=== PATIENT | male | born 1960 ===

== ENCOUNTER 2017-11-16 20:04 | Emergency (ER) | payer OTHER, BC ==
[2017-11-16 20:07] VITALS: BP 140/80; PULSE 60; RESP 16; TEMP 98.8; O2SAT 99
--- NOTE | 2017-11-16 20:20 | ED PDOC ---
Upper Extremity Pain/Injury Time Seen by Provider: 11/16/17 20:09 Chief Complaint (Nursing): Upper Extremity Problem/Injury Chief Complaint (Provider): Upper Extremity Problem/Injury History Per: Patient History/Exam Limitations: no limitations Onset/Duration Of Symptoms: Mins Current Symptoms Are (Timing): Still Present Additional Complaint(s): 57 y/o male brought in by [employer] for evaluation of right should pain s/p trip and fall. Patient states he was at work today and using a buffering machine when he tripped and fell down a ramp, landing on his right elbow and jamming his right shoulder. Patient is now complaining of right anterior shoulder pain and decreased ROM. Patient denies taking medications prior to arrival and does not want any in ER. In addition, patient states of a PSHx of a coronary stent and is currently taking Plavix. PMD: In [place], [place] Past Medical History Reviewed: Historical Data, Nursing Documentation, Vital Signs Vital Signs: Last Vital Signs Temp 98.8 F 11/16/17 20:05 Pulse 60 11/16/17 20:05 Resp 16 11/16/17 20:05 BP 140/80 11/16/17 20:05 Pulse Ox 99 11/16/17 20:05 - Surgical History Surgical History: Coronary Stent - Family History Family History: States: No Known Family Hx - Allergies Allergies/Adverse Reactions: Allergies Allergy/AdvReac Type Severity Reaction Status Date / Time No Known Allergies Allergy Verified 11/16/17 20:05 Review of Systems ROS Statement: Except As Marked, All Systems Reviewed And Found Negative Musculoskeletal: Positive for: Shoulder Pain (right shoulder pain and decreased ROM ) Physical Exam - Reviewed Nursing Documentation Reviewed: Yes Vital Signs Reviewed: Yes - Physical Exam Appears: Positive for: No Acute Distress Head Exam: Positive for: ATRAUMATIC Skin: Positive for: Normal Color, Warm Eye Exam: Positive for: Normal appearance Neck: Positive for: Normal Cardiovascular/Chest: Negative for: Bradycardia, Tachycardia Respiratory: Negative for: Respiratory Distress Extremity: Positive for: Normal ROM (Full ROM of the right wrist and elbow. Decreased ROM with abduction of right shoulder. ), Tenderness (to anterior head of the humerous. Clavicle and scapula are non-tender. ), Other (Abrasion to the right elbow). Negative for: Deformity Neurologic/Psych: Positive for: Alert, Oriented. Negative for: Motor/Sensory Deficits - ECG O2 Sat by Pulse Oximetry: 99 (RA) Pulse Ox Interpretation: Normal Medical Decision Making Medical Decision Making: No acture fracture or dislocation seen on XR of the right shoulder. Antibiotic ointment and dressing on wound. 5 - Pt requesting pain medication. Disposition - Clinical Impression Clinical Impression: Shoulder sprain, Elbow abrasion - Patient ED Disposition Is Patient to be Admitted: No Counseled Patient/Family Regarding: Diagnosis, Need For Followup - Disposition Referrals: Jay Rodriguez III, MD [Staff Provider] - Disposition: Routine/Home Disposition Time: 21:54 Condition: STABLE Instructions: Shoulder Sprain Forms: [facility] (Faroese)
--- NOTE | 2017-11-17 10:00 | RAD ---
Date of service: 11/16/2017 PROCEDURE: Radiographs of the Right Shoulder HISTORY: shoulder pain, fall COMPARISON: No prior. FINDINGS: BONES: No acute fracture or destructive bony lesion identified. JOINTS: No fracture or dislocation identified. Degenerative cortical sclerosis and mild osteophyte development are seen at the acromioclavicular joint with glenohumeral joint unremarkable appearing. SOFT TISSUES: Normal. OTHER FINDINGS: None. IMPRESSION: Limited degenerative change right acromioclavicular joint. Right shoulder radiography otherwise unremarkable.
== END 2017-11-16 22:42 | disposition home or self-care (01) ==
LOC: H.ER 20:04
DX: S43.401A Unspecified sprain of right shoulder joint, initial encounter (principal); S50.311A Abrasion of right elbow, initial encounter; W19.XXXA Unspecified fall, initial encounter; Y92.89 Other specified places as the place of occurrence of the external cause; Z95.5 Presence of coronary angioplasty implant and graft

== ENCOUNTER 2018-07-17 06:15 | Day surgery (SDC) | payer OTHER ==
[2018-07-12 11:59] VITALS: BMI 26.5
[2018-07-17] MEDS ORDERED: Absorbable Gelatin Sponge Size 12-7 ONE (07:13)
[2018-07-17] MEDS ORDERED: EPINEPHrine 1 mg/ml (1:1000) Inj ONE ×2 (07:13)
[2018-07-17] MEDS ORDERED: Thrombin Topical 5,000 Int Units Spray Kit ONE (07:13)
--- NOTE | 2018-07-17 07:13 | CP.SDSHP ---
Same Day Surgery H & P - History Proposed Procedure: Right shoulder arthroscopy, possible rotator cuff repair, acromioplasty, biceps tenotomy and related procedures Pre-Op Diagnosis: Right shoulder partial rotator cuff tear, AC joint arthropathy and impingement, biceps tendon drew injury - Previous Medical/Surgical History Cardiac: ASHD/CAD Previous Surgical History: denies. non smoker - Allergies Allergies: Allergies No Known Allergies Allergy (Verified 11/16/17 20:05) - Physical Exam Vital Signs: Vital Signs 07/17/18 06:56 Temperature 97.9 F Pulse Rate 58 L Respiratory 18 Rate Blood Pressure 115/66 O2 Sat by Pulse 98 Oximetry Mental Status: Alert & Oriented x3 Heart: WNL (medical h&p on chart, cardiology clearance on chart, reviewed) - {Optional Preform as Required} Ortho: Other (+radial pulse, limited painful ROM of shoulder, sensation intact, skin intact, no erythema) Other Pertinent Findings: MRI on chart, reviewed. [place] [employer] patient report reviewed, no CDS. Patient counseled on the risks of addiction, physical or psychological dependence, and overdose associated with opioid drugs and the danger of taking opioid drugs with alcohol and other central nervous system depressants, and cautioned patient on storage and disposal. - Impression Impression: 57M RHD with right shoulder injury at work October 2017 for right shoulder arthroscopy Pt. Evaluated Today:Candidate for Anesthesia & Procedure: Yes - Date & Time Date: 07/17/18 Time: 07:17 Short Stay Discharge - Short Stay Discharge Admitting Diagnosis/Reason for Visit: M75.121/ S46.111A /S43.439A /S46.219A Disposition: HOME/ ROUTINE
[2018-07-17] MEDS ORDERED: Lactated Ringer's 1,000 ML IV ONE (07:15)
[2018-07-17] MEDS ORDERED: Propofol 10 mg/ml Inj (20 ML) ONE (07:28)
[2018-07-17] MEDS ORDERED: Rocuronium 10 mg/ml (5 ml) ONE (07:28)
[2018-07-17] MEDS ORDERED: Succinylcholine Chloride 20 mg/ml Syr (5 ml) IV ONE ×2 (07:28→07:36)
[2018-07-17] MEDS ORDERED: Lidocaine 2% MPF (5 ml) Inj ONE (07:29)
[2018-07-17] MEDS ORDERED: Etomidate 20 mg/10ml Inj IV ONE (07:29)
[2018-07-17] MEDS ORDERED: Phenylephrine 10 mg/ml Inj ONE (07:29)
[2018-07-17] MEDS ORDERED: Ropivacaine 0.5% 30ML IV ONE (07:36)
[2018-07-17] MEDS ORDERED: Midazolam 2 MG/2 ML VIAL ONE (07:53)
[2018-07-17] MEDS: Lidocaine 1% Inj (20ml) ONE ×2 (08:55→10:10)
[2018-07-17] MEDS ORDERED: Desflurane Inhalation Anesthetic Liq (240 ml) ONE (09:06)
[2018-07-17] MEDS: Bacitracin Ointment 30 GM TUBE ONE ×2 (09:12→10:11)
[2018-07-17] MEDS ORDERED: MethylPREDNISolone Depo 40 mg/ml Inj ONE (09:48)
[2018-07-17] MEDS ORDERED: Neostigmine 1:1000 (1 mg/ml) Inj ONE (09:54)
[2018-07-17] MEDS ORDERED: HYDROmorphone 0.5 mg/0.5 ml ISec IVP PRN (10:27)
[2018-07-17] MEDS ORDERED: Oxycodone/Acetaminophen 5/325 mg Tab PO PRN (10:29)
[2018-07-17] MEDS ORDERED: Lactated Ringer's 1,000 ML IV SCH (10:30)
--- NOTE | 2018-07-17 10:30 | PCM.ANESB1 ---
Interscalene Block - Brachial Plexus Date of Procedure: 07/17/18 Anesthesiologist: Peggy Pre-Procedure Diagnosis: Internal derangement right shoulder Post-Procedure Diagnosis: Same Procedure Performed: Interscalene Block of Brachial Plexus Right - Procedure Interscalene Block of Brachial Plexus: This procedure was explained to the patient that it is for post-operative pain management. Consent was obtained after a thorough discussion with the patient regarding the benefits and possible complications of local anesthetic block of the Brachial Plexus at the Interscalene area. The patient was brought to the Operating Room and standard monitors were applied. Time out was held with the circulating nurse to confirm the correct surgery and appropriate block. After applying Oxygen by nasal cannula and administering IV Sedation, the patient's head was gently rotated away from the __right____operative shoulder and the anterior scalene groove was carefully palpated. The ultrasound transducer was then applied to the skin in the transverse plane and the brachial plexus was visualized lateral to the carotid artery and in between the anterior and middle scalene muscles. After identification,the anterior lateral portion of the neck was prepped with Chloraprep and Lidocaine 1% was injected subcutaneously for topical analgesia. At this point, a # 22 gauge Stimuplex 2 inches insulated needle was inserted into the interscalene groove and directed in a caudal and midline direction. The needle was inserted lateral to the ultrasound transducer in-plane towards the brachial plexus in a [id number] direction. Needle advancement was performed carefully under direct ultrasound visualization. Nerve stimulator was used and twitched of the affected extremity including the hand brachialis muscles, biceps and the deltoid was obtained at a current of __0.4___MA. After repeated negative aspiration,__2___cc of_0.5%____,_ ____ropivacaine were injected and this was followed with __28___cc of __0.5___% ___Ropivacaine . Under ultrasound guidance the local anesthetics were observed surrounding the roots of the brachial plexus. The needle was removed intact. The patient had stable vital signs, was conscious and in no apparent distress. The patient tolerated the interscalene block of the bracheal plexus well with stable vital signs and was prepared for subsequent surgery.
--- NOTE | 2018-07-17 12:38 | PCM.SURG1 ---
Surgeon's Initial Post Op Note - Surgeon's Notes Surgeon: Michael Public Improvement Inspector: TAHIR Mejia Type of Anesthesia: General Endo, Block Regional Anesthesia Administered By: DR osullivan Pre-Operative Diagnosis: post traumatic derangement R shoulder Operative Findings: complete tear glenoid labrum ( Slap lesion). avuslion biceps tendon anchor. A/C joint arthropathy. glenpohumeral chondral damage. synvoits/adhesions subacromial space Post-Operative Diagnosis: as above Operation Performed: arthroscopic ;labral repair(repair slap lesion). art hroscopic biceps tenodesis (intraarticular). arthroscopic partial distal clavbiculectomy. arthroscpoic debridement glenohumeral joint. arthroscvopic debridement /lysis of adhesipons subacromial space Specimen/Specimens Removed: synovium/ bone cartilage Estimated Blood Loss: EBL {In ML}: 5 Blood Products Given: N/A Drains Used: No Drains Post-Op Condition: Good Date of Surgery/Procedure: 07/17/18 Time of Surgery/Procedure: 08:55 (time in room 7:45/anaetsheisa indcution time)
[2018-07-17 13:01] VITALS: PULSE 58
[2018-07-17 14:53] VITALS: BP 112/68; RESP 15; TEMP 97.7; O2SAT 98
--- NOTE | 2018-07-17 18:43 | OP ---
PROCEDURE DATE: 07/17/2018 PREOPERATIVE DIAGNOSIS: Post-traumatic derangement of the right shoulder. POSTOPERATIVE DIAGNOSES: 1. Tear of the glenoid labrum extending anterior to posterior to the root of the biceps tendon (so-called superior labral anterior posterior 2 lesion). 2. Avulsion of the biceps tendon anchor. 3. Acromioclavicular joint arthropathy. 4. Glenohumeral chondral damage and severe synovitis. 5. Subacromial adhesions and bursitis in the subacromial space. OPERATIVE PROCEDURE: 1. Arthroscopic repair of superior labral anterior-posterior lesion (repaired glenoid labrum anteriorly). 2. Arthroscopic intra-articular biceps tenodesis. 3. Arthroscopic partial and distal claviculectomy. 4. Partial acromioplasty. 5. Extensive debridement of the glenohumeral joint. 6. Extensive debridement of the subacromial space with partial bursectomy and lysis of adhesions. 7. Intra-articular injection. SURGEON: Jay Rodriguez MD FOUNDER AND PRESIDENT: SOPHIA Lin, certified registered nursing certified surgical first assistant. TYPE OF ANESTHESIA: General endotracheal anesthesia and scalene block. ANESTHESIA ADMINISTERED BY: Denny Woods MD OPERATIVE FINDINGS: 1. Extensive tear of the glenoid labrum as described above. 2. Avulsion of the biceps tendon anchor insertion into the supraglenoid tubercle. 3. Acromioclavicular joint arthropathy. 4. Chondral damage to the glenoid with extensive synovitis of the glenohumeral joint and moderate arthrosis. 5. Adhesions and bursitis in the subacromial space. ESTIMATED BLOOD LOSS: Approximately 20 mL. COMPLICATIONS: No complications. DRAINS: No drains. OPERATIVE INDICATION: Hal Joshi is a 57-year-old gentleman, who is employed by [employer]. The patient had sustained an injury last summer in 2017 while at work. The patient, as a result, injured his right shoulder. The patient to his credit went back to work. The patient began having increasing pain and returned for followup several months ago. The patient was treated with intra-articular injection, activity modification, and therapy. Conservative treatment failed. The patient can no longer stand the discomfort, had no quality of life, sleeping tolerance was disrupted, and he was unable lift the arm above the horizontal plane without pain. Pros, cons, risks and benefits of various options were discussed. The possibility of benign neglect, the possibility of repeated intra-articular injections, and the possibility of arthroscopic surgery decompression and repair were discussed. MRI examination had been accomplished and was discussed with the patient in detail. The patient can no longer stand the pain and wished the surgery to be accomplished. The possibility of mechanical failure, infection, thromboembolic disease, possibility of secondary or tertiary surgery was discussed. The patient can no longer stand the discomfort and wished the surgery to be accomplished. The arthroscopic procedure was discussed at length. DESCRIPTION OF PROCEDURE: After having obtained informed consent in the above fashion, after having identified side, site and procedure and a critical pause/time-out, after the satisfactory induction of the general and regional anesthetic, the patient identified as Hal Joshi in the modified shah-chair position. The right upper extremity was prepped and free draped in the usual fashion for upper extremity surgery. The upper extremity was placed in the shoulder positioner. All bony prominences were well padded. The cervical spine was centralized and communication with anesthesia was carried out during the procedure to make sure that there is no abnormal movement of the cervical spine or impingement. All bony prominences were well-padded, a towel roll was placed under the legs to prevent compression. After having sterilely prepped and draped the upper extremity, the topographic anatomy of the shoulder was marked. The spine of the scapula, the lateral aspect of the acromion and the coracoid process, the joint was insufflated with 10 mL of 1% lidocaine without epinephrine at a point one thumbs breadth inferior and one thumbs breadth medial to the lateral aspect of the acromion. The joint was insufflated with 10 mL of 1% lidocaine, no epinephrine. Using an #11 blade followed by spreading, followed by introduction of the blunt trocar, the arthroscope was introduced and examination of the joint commenced. There was found to be a great deal of post-traumatic synovitis and evidence of chondral damage at the equator and above. There was evidence of a complete tear of the glenoid labrum extending anterior to posterior to the root of the biceps tendon, and it is readily visible on the MRI examination. There was evidence of superior detachment of the biceps tendon anchor. With the arthroscope posteriorly, triangulation was accomplished taking great care to staying lateral to the coracoid process, using number 18-gauge spinal needle followed by #11 blade followed by spreading, followed by introduction of the Wissinger reva. With the arthroscope posteriorly, the cannula was placed anteriorly, again taking great care to staying lateral to the coracoid process. With the arthroscope posteriorly, the cannula was introduced anteriorly and an extensive debridement of the glenohumeral joint was accomplished. The chondral damage was debrided with a chondroplasty using a 3.4-mm DyKidsCashs suction punch and the arthroscopic shaver. Please refer to the video photographs. With the arthroscope posteriorly, a thorough and aggressive partial synovectomy and debridement of the glenohumeral joint was accomplished both to improve visualization and to ablate irritative tissue. Again, please refer to the video photographs. With the arthroscope posteriorly, the probe was introduced and probing of the glenoid labrum reveals evidence of the tear extending from the 3 o'clock position to the 12 o'clock position anteriorly in the right glenoid. The interval between the glenoid and the labrum is developed using a combination of the periosteum elevator. Great care was taken not to further injure the chondral surface of the glenoid, which was already damaged and there is moderate amount of arthrosis in the glenohumeral joint. Extensive synovectomy having been accomplished, extensive debridement of the glenohumeral joint having been accomplished, with the arthroscope posteriorly, repair of the glenoid labrum and intra-articular biceps tenodesis was carried out. The initial anchor was placed at the 2 o'clock position. The lasso was placed around the anterior labrum. The nitinol wire was brought out anteriorly. The luggage tag technique was employed and this was used to cinch down to the labral tear. Drilling was accomplished, the drill hole was developed. The PushLock anchor was introduced. The PushLock anchor was impacted and the initial aspect of the repair was found to be excellent. The second anchor was introduced in the exact same fashion at the 01:30 position on the clock face of this anterior aspect of the glenoid of the right shoulder. Drilling was accomplished. The nitinol wire was used to ensnare the labrum brought out anteriorly. The luggage tag again was employed. Drilling was accomplished and the PushLock anchor was introduced. At this point in time, a third anchor was placed distal to the 3 o'clock position at approximately the 4 o'clock position with the arm in dependency and anteriorly translated. The lasso was placed around the labrum and brought out anteriorly. The luggage tag was brought out into the joint. The luggage tag was removed anteriorly. It was cinched, drilling was accomplished. The anchor was loaded, the anchor was impacted, and the labral repair was completed and found to be acceptable, in fact, better than acceptable. At this point in time, attention was turned to the superior aspect of the avulsion of the glenoid labrum and the biceps tendon anchor. The biceps tendon anchor was avulsed. The area of the superior aspect of the glenoid was roughened using the 3.4 mm BiolineRx suction punch, and the inner free edge of the biceps tendon anchor was smoothed. The biceps tendon anchor was ensnared with the lasso, the lasso was brought out anteriorly. The luggage tag was used to ensnare the base of the biceps tendon. Drilling was accomplished at the 12 o'clock position. The PushLock anchor was introduced and the intra-articular biceps tenodesis was thus accomplished. Biceps tenodesis having been accomplished in this fashion, the suture was clipped. Thorough debridement of the glenohumeral joint was accomplished, and with the arm in dependency, the arthroscope was placed in the subacromial space. Triangulation was accomplished at this point using a third portal and the so-called [place] style at the mid aspect of the acromion. The spinal needle was introduced followed by #11 blade, followed by spreading, introduction of the blunt trocar. There was found to be a massive amount of adhesions and bursitis in the subacromial space. With the arthroscope posteriorly using a combination of the arthroscopic shaver, the 4.5 and 5.5 mm lyubov and the arthroscopic wand, a thorough and extensive debridement and lysis of adhesions and partial bursectomy in the subacromial space were accomplished. The arthroscope, now at this point in time posteriorly, the rotator cuff was evaluated. Further bursectomy was accomplished. There was found to be no evidence of a full-thickness tear of the rotator cuff. The feeling at this point in time is as best not to violate the rotator cuff, and with the arthroscope posteriorly, attention was turned to the acromion. There was found to be a downward sloping acromion with evidence of impingement, and therefore, tendinosis of the rotator cuff. With the arthroscope posteriorly using the arthroscopic bur, a partial acromioplasty was accomplished. Partial acromioplasty having been accomplished, with the arthroscope posteriorly, further debridement at the acromioclavicular joint of the AC joint inferior capsule was accomplished using the arthroscopic wand. With the arthroscope posteriorly, the bur was placed anteriorly and a partial distal claviculectomy was accomplished to include the articular surface. Approximately 1 cm of the distal clavicle was resected using the arthroscopic bur to include the articular surface. With the arthroscope laterally, partial bursectomy was accomplished. The arthroscopic wand was used to control hemostasis. With the arthroscope posteriorly, partial acromioplasty was completed and partial distal claviculectomy was completed. Further debridement and lysis of adhesions and bursectomy in the subacromial space were completed. Hemostasis was controlled with the arthroscopic wand. With the arm in some abduction, the portals were closed after thorough irrigation with interrupted Vicryl and nylon. Intra-articular injection of Depo-Medrol and lidocaine was accomplished. Compression dressing and gunslinger splint was applied. The operation could not have been accomplished without the assistantship of Monica Martel, certified registered nursing certified surgical first assistant. Jay Rodriguez MD
== END 2018-07-17 14:40 | disposition home or self-care (01) ==
LOC: H.OPSURG 06:15
PROVIDERS: ATTEND Orthopaedic Surgery
DX: M75.121 Complete rotator cuff tear or rupture of right shoulder, not specified as traumatic (principal); S46.111A Strain of muscle, fascia and tendon of long head of biceps, right arm, initial encounter; S43.439A Superior glenoid labrum lesion of unspecified shoulder, initial encounter; S46.219A Strain of muscle, fascia and tendon of other parts of biceps, unspecified arm, initial encounter; X58.XXXA Exposure to other specified factors, initial encounter; Y99.0 Civilian activity done for income or pay; M75.111 Incomplete rotator cuff tear or rupture of right shoulder, not specified as traumatic; M75.01 Adhesive capsulitis of right shoulder; M65.811 Other synovitis and tenosynovitis, right shoulder; I25.10 Atherosclerotic heart disease of native coronary artery without angina pectoris; E78.5 Hyperlipidemia, unspecified
CPT/HCPCS: 29823; 29828; 36415; 84132; 88304; C1713; J0171; J0690; J1030; J2001; J2250; J2370; J2704; J2710; J3010; J7030; J7120